=== PATIENT | female | born 1995 | race Caucasian/White ===

== ENCOUNTER 2024-01-03 04:16 | Day surgery (SDC) | payer BC ==
[2024-01-02 13:23] VITALS: BMI 18.9
[2024-01-03] MEDS ORDERED: PROPOFOL 20 ML ONE (17:35)
[2024-01-03] MEDS ORDERED: MIDAZOLAM HCL 2 MG/2 ML SINGLE DOSE VIAL ONE (17:36)
[2024-01-03] MEDS: ceFAZolin SODIUM 1 GM VIAL IVPB ONE ×2 (17:45)
[2024-01-03] MEDS ORDERED: ONDANSETRON 4 MG/2 ML VIAL ONE (18:08)
[2024-01-03] MEDS ORDERED: DEXAMETHASONE SOD PHOSPHATE 4 MG/1 ML VIAL ONE (18:08)
[2024-01-03] MEDS ORDERED: ONDANSETRON 4 MG/2 ML VIAL IVPUSH PRN (18:26)
[2024-01-03] MEDS ORDERED: LACTATED RINGERS SOLUTION 1,000 ML IV SCH (18:30)
[2024-01-03 20:24] VITALS: RESP 20; TEMP 97.7
[2024-01-03 20:27] VITALS: BP 124/85; PULSE 85
== END 2024-01-03 20:20 | disposition home or self-care (01) ==
LOC: JASU-SURG 04:16
PROVIDERS: ATTEND Urology
PROC: 0T778DZ Dilation of Left Ureter with Intraluminal Device, Via Natural or Artificial Opening Endoscopic (ICD-10-PCS; principal; 2024-01-03 15:45)
PROC: BT1FYZZ Fluoroscopy of Left Kidney, Ureter and Bladder using Other Contrast (ICD-10-PCS; 2024-01-03 15:45)
PROC: 0TP5X0Z Removal of Drainage Device from Kidney, External Approach (ICD-10-PCS; 2024-01-03 15:45)
DX: N20.2 Calculus of kidney with calculus of ureter (principal); N13.5 Crossing vessel and stricture of ureter without hydronephrosis
CPT/HCPCS: 76000-TC-FY; 81025; 94760; C1758; C1769

== ENCOUNTER 2024-01-12 22:22 | Inpatient (IN) | payer BC ==
[2024-01-12] MEDS: ACETAMINOPHEN 1000 MG/100 ML BAG IVPB ONE (23:28)
[2024-01-12] MEDS: ONDANSETRON 4 MG/2 ML VIAL IVPB ONE (23:28)
[2024-01-12] MEDS ORDERED: ACETAMINOPHEN INJECTION 100 ML IVPB ONE (23:32)
[2024-01-12] MEDS ORDERED: ONDANSETRON 4 MG/2 ML VIAL ONE (23:32)
[2024-01-13 00:28] LABS: BASO % 0.5 % (0-2.0); EOS % 0.9 % (0-4.5); HEMATOCRIT 37.4 % (32.4-45.2); HEMOGLOBIN 12.6 GM/dL (10.7-15.3); LYMPH % 11.2 % (8-40); MCH 28.3 pg (25.7-33.7); MCHC 33.6 g/dl (32.0-36.0); MEAN CELL VOLUME 84.4 fl (80-96); MEAN PLT VOLUME 9.3 fl (7.5-11.1); MONO % 10.2 % (3.8-10.2); NEUT % 77.2 % (42.8-82.8); PLATELET COUNT 231 10^3/uL (134-434); RBC 4.43 M/mm3 (3.60-5.2); WHITE BLOOD COUNT 14.2 K/mm3 (4.0-10.0)
[2024-01-13 00:46] LABS: POTASSIUM 3.8 mmol/L (3.5-5.1)
[2024-01-13 00:49] LABS: CALCIUM 9.4 mg/dL (8.5-10.1)
[2024-01-13 00:50] LABS: ALBUMIN 4.1 g/dl (3.4-5.0)
[2024-01-13 00:53] LABS: CREATININE 0.8 mg/dL (0.55-1.3)
[2024-01-13 00:55] LABS: BILIRUBIN,TOTAL 0.7 mg/dL (0.2-1); TOT PROT 7.6 g/dl (6.4-8.2)
[2024-01-13 01:58] LABS: HCG,QUALITATIVE URINE Negative
[2024-01-13 02:12] LABS: EPI CELLS 11 /uL (0-25.1); HYALINE CASTS 13 /uL (0-3.1); PH,URINE 5.5 (5.0-8.0); URINE APPEARANCE CLOUDY; URINE BACTERIA 366 /uL (0-1359); URINE BILIRUBIN NEGATIVE (NEGATIVE); URINE COLOR YELLOW; URINE GLUCOSE (UA) NEGATIVE (NEGATIVE); URINE KETONE 3+ (NEGATIVE); URINE LEUK ESTERASE 1+ (NEGATIVE); URINE NITRITE NEGATIVE (NEGATIVE); URINE PROTEIN 2+ (NEGATIVE); URINE RBC 57 /uL (0-23.9); URINE UROBILINOGEN 0.2 mg/dL (0.2-1.0); URINE WBC 672 /uL (0-25.8)
[2024-01-13] MEDS: KETOROLAC TROMETHAMINE 15 MG/ML VIAL IVPUSH ONE (02:55)
[2024-01-13] MEDS ORDERED: KETOROLAC TROMETHAMINE 15 MG/ML VIAL ONE (02:56)
[2024-01-13] MEDS: CEFTRIAXONE 1,000 MG in DEXTROSE 5%-WATER - 50 ML IVPB ONE (06:33)
[2024-01-13] MEDS ORDERED: CEFTRIAXONE 1 GM/50 ML BAG ONE (06:36)
[2024-01-13 07:22] LABS: URINE CRYSTALS SEEN /hpf
[2024-01-13 07:24] LABS: HEMATOCRIT 35.3 % (32.4-45.2); HEMOGLOBIN 12.2 GM/dL (10.7-15.3); MCHC 34.5 g/dl (32.0-36.0); MEAN PLT VOLUME 9.1 fl (7.5-11.1); PLATELET COUNT 210 10^3/uL (134-434); RDW 13.3 % (11.6-15.6); WHITE BLOOD COUNT 9.9 K/mm3 (4.0-10.0)
[2024-01-13 07:38] LABS: POTASSIUM 3.7 mmol/L (3.5-5.1)
[2024-01-13 07:42] LABS: CALCIUM 8.6 mg/dL (8.5-10.1)
[2024-01-13 07:43] LABS: ALBUMIN 3.5 g/dl (3.4-5.0); BLOOD UREA NITROGEN 16.6 mg/dL (7-18)
[2024-01-13 07:46] LABS: CREATININE 0.8 mg/dL (0.55-1.3)
[2024-01-13 07:47] LABS: BILIRUBIN,TOTAL 0.8 mg/dL (0.2-1)
[2024-01-13 07:48] LABS: TOT PROT 6.6 g/dl (6.4-8.2)
[2024-01-13] MEDS ORDERED: ACETAMINOPHEN 1000 MG/100 ML BAG IVPB PRN ×4 (08:09→12:46)
[2024-01-13] MEDS ORDERED: ACETAMINOPHEN 500 MG TABLET (FP) PO PRN ×2 (08:55→12:46)
[2024-01-13] MEDS: CEFTRIAXONE 1 GM in DEXTROSE 5%-WATER - 50 ML IVPB SCH (09:32)
[2024-01-13] MEDS: LACTATED RINGERS SOLUTION 1,000 ML/1,000 ML INFUS.BAG IV SCH (09:32)
[2024-01-13] MEDS: KETOROLAC TROMETHAMINE 15 MG/ML VIAL IVPUSH PRN (09:33)
[2024-01-13] MEDS ORDERED: ENOXAPARIN NA (PORCINE) 40 MG/0.4 ML DISP.SYRIN SQ SCH (10:00)
[2024-01-13 10:30] LABS: INR 1.06 (0.83-1.09)
[2024-01-13] MEDS ORDERED: SUCCINYLCHOLINE CHLORIDE 200 MG/10 ML SYRINGE ONE (11:02)
[2024-01-13] MEDS ORDERED: MIDAZOLAM HCL 2 MG/2 ML SINGLE DOSE VIAL ONE (11:02)
[2024-01-13] MEDS ORDERED: PROPOFOL 20 ML ONE (11:02)
[2024-01-13] MEDS: ceFAZolin SODIUM 1 GM VIAL IVPB ONE (11:30)
[2024-01-13] MEDS: LIDOCAINE HCL 2% JELLY (5 ML/TUBE) TP ONE (11:40)
[2024-01-13] MEDS ORDERED: PROMETHAZINE HCL 25 MG/1 ML VIAL IVPB PRN (12:17)
[2024-01-13 12:26] VITALS: BMI 18.6
[2024-01-13] MEDS ORDERED: KETOROLAC TROMETHAMINE 15 MG/ML VIAL IVPUSH PRN (12:46)
[2024-01-13] MEDS: LACTATED RINGERS SOLUTION 1,000 ML IV SCH (12:48)
[2024-01-13 13:07] VITALS: RESP 16
[2024-01-13 16:11] VITALS: BP 106/66; PULSE 85; TEMP 97.7
[2024-01-14] MEDS ORDERED: TAMSULOSIN HCL 0.4 MG CAP PO SCH ×2 (08:30)
[2024-01-14] MEDS ORDERED: CEFTRIAXONE 1 GM in DEXTROSE 5%-WATER - 50 ML IVPB SCH (10:00)
[2024-01-25 08:11] LABS: CA OXALATE MONOHYDR. 20 % (.); SIZE <1 mm (.); WEIGHT <1 mg (.)
== END 2024-01-13 16:00 | disposition home or self-care (01) | DRG 661 ==
LOC: JER 22:22 → JERBED 01-13 05:05 → J8W 01-13 07:20
PROVIDERS: ADMIT Internal Medicine; ATTEND Internal Medicine
PROC: 0T778DZ Dilation of Left Ureter with Intraluminal Device, Via Natural or Artificial Opening Endoscopic (ICD-10-PCS; 2024-01-13)
PROC: BT1FZZZ Fluoroscopy of Left Kidney, Ureter and Bladder (ICD-10-PCS; 2024-01-13)
PROC: 0TC78ZZ Extirpation of Matter from Left Ureter, Via Natural or Artificial Opening Endoscopic (ICD-10-PCS; principal; 2024-01-13 10:30)
DX: N13.6 Pyonephrosis (principal)
CPT/HCPCS: 36415; 74176-TC; 76000-TC-FY; 80053; 81003; 82360; 84703; 85025; 85027; 85610; 86850; 86900; 86901; 87077; 87086; 87186; 88300-TC; 93005; 93010; 94760; 99285-25; C1769; C2617; J0131